=== PATIENT | female | born 1945 | race Two or more races ===

== ENCOUNTER 2018-06-15 19:45 | Emergency (ER) | payer MEDICARE, BC ==
[2018-06-15] MEDS ORDERED: HYDROCODONE/ACETAMINOPHEN 5-325 MG TABLET PO ONE (19:59)
--- NOTE | 2018-06-15 20:51 | RADIOLOGY REPORT (SQ) ---
EXAM DESCRIPTION: FEMUR LEFT COMPLETED DATE/TIME: 06/15/2018 8:25 pm REASON FOR STUDY: fall COMPARISON: None. NUMBER OF VIEWS: Two views. TECHNIQUE: Two radiographic images acquired of the left femur to include hip and knee in at least on e projection. LIMITATIONS: None. FINDINGS: MINERALIZATION: Normal. BONES: No acute fracture. No worrisome bone lesions. Status post left knee total arthroplasty. SOFT TISSUES: No obvious swelling or foreign body. OTHER: No other significant finding. IMPRESSION: No fracture or dislocation of the left femur. TECHNICAL DOCUMENTATION: JOB ID: [id number] [employer]- All Rights Reserved Reading location - IP/workstation name: [email or web address]
--- NOTE | 2018-06-15 20:52 | RADIOLOGY REPORT (SQ) ---
EXAM DESCRIPTION: KNEE LEFT 4 VIEW COMPLETED DATE/TIME: 06/15/2018 8:25 pm REASON FOR STUDY: pain COMPARISON: None. NUMBER OF VIEWS: Four views. TECHNIQUE: AP, lateral, and both oblique radiographic images acquired of the left knee. LIMITATIONS: None. FINDINGS: MINERALIZATION: Normal. BONES: No acute fracture or dislocation. No worrisome bone lesions. JOINT: No effusion. Status post total knee arthroplasty. SOFT TISSUES: No soft tissue swelling. No radio-opaque foreign body. OTHER: No other significant finding. IMPRESSION: No fracture or dislocation of the left knee. No evidence of perihardware fracture or lo osening status post total knee arthroplasty. TECHNICAL DOCUMENTATION: JOB ID: [id number] [employer]- All Rights Reserved Reading location - IP/workstation name: [email or web address]
--- NOTE | 2018-06-15 21:59 | ER Document Report ---
ED General - General Chief Complaint: Leg Injury Stated Complaint: LEFT LEG INJURY Time Seen by Provider: 06/15/18 19:59 Notes: Patient is a 72-year-old female presents to the emergency department for a mechanical fall onto her left side. Patient states she missed the last 2 steps in her garage and fell onto the distal aspect of her left femur and onto her left knee. Patient states she had immediate pain in that area which is why she presents to the emergency room. Patient denies hitting her head, neck, back. Patient denies loss of consciousness or vomiting. Past medical history: Hypertension, hypothyroid Medications: Lipitor, Synthroid, Boniva Allergies: None Surgical history: Left knee replacement. TRAVEL OUTSIDE OF THE [place] IN LAST 30 DAYS: No COUNTRY TRAVELED TO/FROM: [facility] - Related Data Allergies/Adverse Reactions: No Known Allergies Allergy (Verified 06/15/18 19:58) Past Medical History - General Information source: Patient - Social History Smoking Status: Never Smoker Frequency of alcohol use: None Drug Abuse: None Family History: Reviewed & Not Pertinent Patient has suicidal ideation: No Patient has homicidal ideation: No - Past Medical History Cardiac Medical History: Reports: Hx Hypercholesterolemia Renal/ Medical History: Denies: Hx Peritoneal Dialysis Past Surgical History: Reports: Hx Orthopedic Surgery - L knee replacement Review of Systems - Review of Systems Constitutional: No symptoms reported EENT: No symptoms reported Cardiovascular: No symptoms reported Respiratory: No symptoms reported Gastrointestinal: No symptoms reported Genitourinary: No symptoms reported Female Genitourinary: No symptoms reported Musculoskeletal: See HPI Skin: No symptoms reported Hematologic/Lymphatic: No symptoms reported Neurological/Psychological: No symptoms reported Physical Exam - Vital signs Vitals: Temp Pulse Resp BP Pulse Ox 97.5 F 80 17 142/58 H 97 06/15/18 19:46 06/15/18 19:46 06/15/18 19:46 06/15/18 19:46 06/15/18 19:46 - Notes Notes: GENERAL: Alert, interacts well. No acute distress. HEAD: Normocephalic, atraumatic. EYES: Pupils equal, round, and reactive to light. Extraocular movements intact. ENT: Oral mucosa moist, tongue midline. NECK: Full range of motion. Supple. Trachea midline. LUNGS: Clear to auscultation bilaterally, no wheezes, rales, or rhonchi. No respiratory distress. HEART: Regular rate and rhythm. No murmur ABDOMEN: Soft, non-tender. Non-distended. Bowel sounds present in all 4 quadrants. EXTREMITIES: Moves all 4 extremities spontaneously. No edema, normal radial and dorsalis pedis pulses bilaterally. No cyanosis. Patient denies pain in her left hip to include on deep palpation, patient does admit to pain in her left knee and distal left femur. No erythema, ecchymosis, swelling noted to distal left femur or left knee. No pain with Jacob's test, patient does admit to pain with varus and valgus movements of the left knee. Capillary refill less than 2 seconds all 4 extremities. Patient denies pain in the left ankle and has full range of motion of same BACK: no cervical, thoracic, lumbar midline tenderness. No saddle anesthesia, normal distal neurovascular exam. NEUROLOGICAL: Alert and oriented x3. Normal speech. cranial nerves II through XII grossly intact PSYCH: Normal affect, normal mood. SKIN: Warm, dry, normal turgor. No rashes or lesions noted. Course - Re-evaluation Re-evalutation: 06/15/18 21:58 Patient's x-rays returned with no signs of fractures at this time. Discussed this at length with patient and family at bedside. Patient was placed in a knee immobilizer and given crutches. Patient states pain medication in the emergency room has helped a lot. Patient is not on any blood thinners and denies loss of consciousness or hitting her head, no need for CT imaging of head or neck at this time. Discussed close follow-up with primary care provider and inevitably orthopedics. Close return precautions discussed. - Vital Signs Vital signs: Temp Pulse Resp BP Pulse Ox 97.5 F 80 17 142/58 H 97 06/15/18 19:46 06/15/18 19:46 06/15/18 19:46 06/15/18 19:46 06/15/18 19:46 Discharge - Discharge Clinical Impression: Left knee pain Qualifiers: Chronicity: acute Qualified Code(s): M25.562 - Pain in left knee Left knee injury Qualifiers: Encounter type: initial encounter Qualified Code(s): S89.92XA - Unspecified injury of left lower leg, initial encounter Condition: Stable Disposition: HOME, SELF-CARE Instructions: Knee Immobilizing Splint ([facility]), Sprained Knee ([facility]), Suspected Internal Knee Injury ([facility]) Additional Instructions: As we discussed you have been seen and treated in the emergency department for left knee injury. Your x-rays revealed no signs of fractures at this time. You should follow-up with your primary care provider and then orthopedics for an outpatient MRI. Please use knee immobilizer for the next 7 days or until you follow-up with primary care provider or orthopedics. Please take [id number] er Tylenol and Motrin for pain. Please return to the emergency room for any other concerning symptoms. Referrals: DEISY VANG MD [Primary Care Provider] - Follow up as needed HORTENSIA GIPSON DO [ACTIVE STAFF] - Follow up as needed
[2018-06-15 22:18] VITALS: BP 132/84
== END 2018-06-15 22:18 | disposition home or self-care (01) ==
LOC: ER 19:45
DX: S89.92XA Unspecified injury of left lower leg, initial encounter (principal); M25.562 Pain in left knee; W10.9XXA Fall (on) (from) unspecified stairs and steps, initial encounter; Y92.008 Other place in unspecified non-institutional (private) residence as the place of occurrence of the external cause; I10 Essential (primary) hypertension; E03.9 Hypothyroidism, unspecified; Z96.652 Presence of left artificial knee joint
CPT/HCPCS: 99284; 73552; 73564; L1830; A9270

== ENCOUNTER → 2018-12-30 | Outpatient (CLI) | payer MEDICARE, BC ==
--- NOTE | 2018-12-30 15:27 | RADIOLOGY REPORT (SQ) ---
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 The route of agent administration: Intravenous. ADDITIONAL DRUGS AND DOSES: None. TECHNIQUE: Following injection of the radiopharmaceutical, serial blood flow images acquired. Equil ibrium blood pool images then acquired. Routine delayed images at 3 hours acquired of the areas of c linical concern with additional focused images as needed. AREA OF INTEREST: Bilateral knees, left knee LIMITATIONS: None. FINDINGS: VASCULAR FLOW IMAGES: No asymmetry or focal areas of hyperemia. BLOOD POOL IMAGES: No asymmetry or focal areas of soft-tissue hyper-perfusion. BONES: Delayed images show increased uptake along the distal left femur and proximal left tibia adjac ent to the left total knee replacement. This most likely represent loosening hardware. On the right side, there is increased uptake in the medial and lateral compartment characteristic dis tribution for osteoarthritis. OTHER: No other significant finding. IMPRESSION: Increased uptake on delayed images only, left distal femur and proximal tibia adjacent t o a total knee arthroplasty. This most likely represents hardware loosening. COMMENT: Quality measure 147: Current bone scan is compared with any available plain radiographs, p rior bone scans, and CT/MRI. TECHNICAL DOCUMENTATION: JOB ID: [id number] [employer]- All Rights Reserved Reading location - IP/workstation name: [email or web address]
== END ==
LOC: RAD 09:21 → MERGE 10:00
PROVIDERS: ATTEND Orthopaedic Surgery
DX: T84.033A Mechanical loosening of internal left knee prosthetic joint, initial encounter (principal)
CPT/HCPCS: 78315; A9561; Q9969